=== PATIENT | male | born 1960 | race Caucasian/White ===

== ENCOUNTER 2024-12-02 14:46 | Emergency (ER) | payer SELFPAY ==
[2024-12-02 14:55] LABS: BASOPHILS PERCENT AUTO 0.4 % (0.0-1.0); EOSINOPHILS PERCENT AUTO 0.6 % (1.0-3.0); HEMATOCRIT 41.6 % (40.0-54.0); LYMPHOCYTES PERCENT AUTO 29.3 % (20.5-50.1); MEAN CORPUSCULAR HEMOGLOBIN 33.4 pg (27.0-34.0); MEAN CORPUSCULAR HGB CONC 36.1 g/dL (33.0-35.0); MEAN CORPUSCULAR VOLUME 92.7 fL (80-100); MONOCYTES PERCENT AUTO 12.9 % (2-8); NEUTROPHILS PERCENT AUTO 56.8 % (42.2-75.2); PLATELET COUNT,PLT 153 10^3/uL (150-450); RED BLOOD CELL COUNT 4.49 10^6/uL (4.6-6.2); WHITE BLOOD CELL COUNT,WBC 6.7 10^3/uL (5.0-10.0)
[2024-12-02 15:14] LABS: A/G RATIO 1.2; ALANINE AMINOTRANSFERASE,ALT 29 U/L (16-63); ALBUMIN 3.8 g/dL (3.4-5.0); ALKALINE PHOSPHATASE 72 U/L (46-116); ASPARTATE AMNIOTRANSFERASE,AST 28 U/L (15-37); BILIRUBIN TOTAL 1.2 mg/dL (0.2-1.0); BLOOD UREA NITROGEN,BUN 9 mg/dL (7-18); BUN/CREATININE RATIO 7.5 (No establ ref range); CALCIUM 9.4 mg/dL (8.5-10.1); CHLORIDE,CL 93 mmol/L (98-107); GLUCOSE RANDOM 140 mg/dL (70-99); PROTEIN TOTAL,TP 7.1 g/dL (6.4-8.2)
[2024-12-02 15:18] LABS: POTASSIUM,K 3.5 mmol/L (3.5-5.1); SODIUM,NA 131 mmol/L (136-145)
[2024-12-02 15:19] LABS: ANION GAP 20.5 mEq/L (7-13); CARBON DIOXIDE,CO2 21 mmol/L (21-32); ESTIMATED GFR 68 mL/min (>=60)
[2024-12-02] MEDS: Sodium Chloride 0.9% 1,000 ML IV SCH (15:34)
== END 2024-12-02 16:20 | disposition home or self-care (01) ==
LOC: DL.ED 14:46
DX: R56.9 Unspecified convulsions (principal)
CPT/HCPCS: 36415; 70450; 80053; 82947; 85025; 93005; 99285; J7030; 93010; 99284